=== PATIENT | female | born 1950 | race Caucasian/White ===

== ENCOUNTER → 2018-08-13 | Outpatient (CLI) | payer BC, SELFPAY ==
--- NOTE | 2018-08-13 06:57 | BI_ITS ---
MAMMOGRAPHY - BILATERAL SCREENING 3-D TOMOSYNTHESIS REASON FOR EXAM: Female, 68 years old. Bilateral Screening 3-D tomosynthesis PERTINENT HISTORY: Status post left stereotactic biopsy in 2010.. TECHNIQUE: 2-D mammograms and 3-D Tomosynthesis of the breast (s) were performed. CAD was performed. COMPARISON: June 20, 2016. FINDINGS: The breast composition is heterogeneously dense that can obscure small breast masses. Scattered benign calcifications are seen. No dense spiculated masses or suspicious microcalcifications are identified. No architectural distortion is identified. There is no skin thickening or retraction. Three Biopsy clips are identified within the parenchyma of the left upper lateral breast. There is stable mild focal fibrosis adjacent to one of these clips involving the deep lateral left breast. This finding most likely represents postbiopsy fibrosis. There has been no significant change since the prior study. BI/SCREENING MAMM (CAD), BILAT IMPRESSION: No mammographic signs of malignancy. Routine yearly mammograms recommended. ASSESSMENT CATEGORY: BIRADS Category 2: Benign. A letter regarding these results will be sent to the patient by the facility within 30 days. FOLLOW UP RECOMMENDATION: Yearly follow up mammogram recommended. (A) Approximately 10% of breast cancers are not detected by mammography. A normal mammogram should not delay biopsy of a clinically suspicious abnormality. Electronically Signed: Darren Ramírez MD at 8:21 EDT , Service support ,
== END | disposition home or self-care (01) ==
LOC: OPBI 06:55
PROVIDERS: Family Provider Family Medicine; PCP Family Medicine; Referring Provider Family Medicine; Visit Provider Family Medicine
DX: Z12.31 Encounter for screening mammogram for malignant neoplasm of breast (principal)
CPT/HCPCS: 77063; 77067

== ENCOUNTER → 2019-08-26 08:38 | Outpatient (CLI) | payer BC, SELFPAY ==
--- NOTE | 2019-08-26 08:41 | BI_ITS ---
MAMMOGRAPHY - BILATERAL SCREENING REASON FOR EXAM: Female, 69 years old. Routine annual screening examination. PERTINENT HISTORY: Non-contributory. Remote right excisional breast biopsy and left stereotactic breast biopsy. TECHNIQUE: Digital bilateral breast morgan (3D mammographic acquisition) in the CC and MLO projections. 2-D mediolateral oblique (MLO) and craniocaudad (CC) views of both breasts were obtained. CAD: Full Field Digital Mammography with Computer Added Detection was performed. COMPARISON: Comparison is made with prior examination dated August 13, 2018 and September 16, 2010. FINDINGS: Breast Composition: The breasts are heterogeneously dense, which may obscure small masses. There are no dominant masses or suspicious calcifications. 2 tissue markers are seen in the upper slightly lateral aspect of the left breast. These are unchanged. No other significant abnormalities are identified. There has been no significant change since the prior study. BI/SCREEN MAMM (CAD) W/MORGAN BILAT IMPRESSION: Stable bilateral screening mammogram. Yearly follow-up mammogram recommended. (A) ASSESSMENT CATEGORY: BIRADS Category 2: Benign. A letter regarding these results will be sent to the patient by the facility within 30 days. Approximately 10% of breast cancers are not detected by mammography. A normal mammogram should not delay biopsy of a clinically suspicious abnormality. [id number] Electronically Signed: Chris Rodrigues, at 10:27 EDT , Service support ,
== END ==
PROVIDERS: PCP Family Medicine; Referring Provider Family Medicine; Visit Provider Family Medicine
DX: Z12.31 Encounter for screening mammogram for malignant neoplasm of breast (principal)
CPT/HCPCS: 77063; 77067

== ENCOUNTER → 2020-08-27 07:40 | Outpatient (CLI) | payer BC, SELFPAY ==
--- NOTE | 2020-08-27 07:44 | BI_ITS ---
MAMMOGRAPHY - BILATERAL SCREENING 3-D TOMOSYNTHESIS REASON FOR EXAM: Female, 70 years old. Routine screening PERTINENT HISTORY: Previous biopsies. TECHNIQUE: 2-D mammograms and 3-D Tomosynthesis of the breast (s) were performed. CAD was performed. COMPARISON: 08/26/2019 FINDINGS: The breast composition is heterogeneously dense that can obscure small breast masses. Scattered benign calcifications are seen. No dense spiculated masses or suspicious microcalcifications are identified. Stable architectural distortion in both breasts from previous biopsies.. There is no skin thickening or retraction. There has been no significant change since the prior study. BI/SCRN MAMM (CAD)W/MORGAN BILAT IMPRESSION: No mammographic signs of malignancy. Routine yearly mammograms recommended. ASSESSMENT CATEGORY: BIRADS Category 2: Benign. A letter regarding these results will be sent to the patient by the facility within 30 days. FOLLOW UP RECOMMENDATION: Yearly follow up mammogram recommended. (A) Approximately 10% of breast cancers are not detected by mammography. A normal mammogram should not delay biopsy of a clinically suspicious abnormality. Electronically Signed: Ronn Manzanares MD at 8:23 EDT , Service support ,
== END ==
PROVIDERS: PCP Family Medicine; Referring Provider Family Medicine; Visit Provider Family Medicine
DX: Z12.31 Encounter for screening mammogram for malignant neoplasm of breast (principal)
CPT/HCPCS: 77063; 77067

== ENCOUNTER → 2021-08-29 | Outpatient (CLI) | payer BC, SELFPAY ==
--- NOTE | 2021-08-29 07:03 | BI_ITS ---
MAMMOGRAPHY - BILATERAL SCREENING REASON FOR EXAM: Female, 71 years old. Routine annual screening examination. PERTINENT HISTORY: Non-contributory. Remote left stereotactic breast biopsy and right excisional biopsy. TECHNIQUE: Digital bilateral breast morgan (3D mammographic acquisition) in the CC and MLO projections. 2-D mediolateral oblique (MLO) and craniocaudad (CC) views of both breasts were obtained. CAD: Full Field Digital Mammography with Computer Added Detection was performed. COMPARISON: Comparison is made with prior study of 08/27/2020 and 08/26/2019. FINDINGS: Breast Composition: The breasts are heterogeneously dense, which may obscure small masses. 2 tissue markers are once again seen in the upper lateral aspect of the left breast. Since prior study, there has been progressive architectural distortion in the upper lateral portion of the left breast. The patient will be recalled for additional views including 90 degree lateral and compression spot views. No other significant abnormalities are identified. BI/SCRN MAMM (CAD)W/MORGAN BILAT IMPRESSION: Progressive architectural distortion in the upper lateral portion of the left breast as described. The patient will be recalled for additional views including compression spot views and 90 degree lateral view. Recall Side: Left Breast ASSESSMENT CATEGORY: BIRADS Category 0: Incomplete. Need additional imaging evaluation. A letter regarding these results will be sent to the patient by the facility within 30 days. Approximately 10% of breast cancers are not detected by mammography. A normal mammogram should not delay biopsy of a clinically suspicious abnormality. [id number] Electronically Signed: Chris Rodrigues MD at 8:48 EDT ,
== END | disposition home or self-care (01) ==
LOC: OPBI 07:01
PROVIDERS: PCP Family Medicine; Referring Provider Family Medicine; Visit Provider Family Medicine
DX: Z12.31 Encounter for screening mammogram for malignant neoplasm of breast (principal)
CPT/HCPCS: 77063; 77067

== ENCOUNTER → 2021-09-03 | Outpatient (CLI) | payer BC, SELFPAY ==
--- NOTE | 2021-09-03 08:59 | BI_ITS ---
MAMMOGRAPHY - UNILATERAL DIAGNOSTIC: LEFT BREAST REASON FOR EXAM: Female, 71 years old. ABN MAMM PERTINENT HISTORY: Non-contributory. TECHNIQUE: Digital examination. Mediolateral oblique (MLO) and craniocaudad (CC) views of the breast were obtained. CAD: CAD was not performed on this study. COMPARISON: 08/29/2021 FINDINGS: Breast Composition: The breasts are heterogeneously dense, which may obscure small masses. Focal compression views do not confirm a mass or architecture distortion the upper outer quadrant left breast at the site of prior lumpectomy consistent with scarring and normal breast parenchyma. No other significant abnormalities are identified. BI/DIAG MAMM W/CAD, UNILAT IMPRESSION: Stable unilateral diagnostic mammogram. ASSESSMENT CATEGORY: BIRADS Category 2: Benign. A letter regarding these results will be sent to the patient by the facility within 30 days. FOLLOW-UP RECOMMENDATION: Yearly follow-up mammogram recommended. (A) Approximately 10% of breast cancers are not detected by mammography. A normal mammogram should not delay biopsy of a clinically suspicious abnormality. Electronically Signed: Tomasz Herrera MD at 9:46 EDT ,
== END | disposition home or self-care (01) ==
LOC: OPBI 08:58
PROVIDERS: PCP Family Medicine; Visit Provider Family Medicine
DX: R92.2 Inconclusive mammogram (principal)
CPT/HCPCS: 77065

== ENCOUNTER → 2022-09-10 | Outpatient (CLI) | payer BC, SELFPAY ==
--- NOTE | 2022-09-10 07:38 | BI_ITS ---
MAMMOGRAPHY - BILATERAL SCREENING REASON FOR EXAM: Female, 72 years old. Routine annual screening examination. PERTINENT HISTORY: Non-contributory. Prior left stereotactic breast biopsy and right excisional breast biopsy. TECHNIQUE: Digital bilateral breast morgan (3D mammographic acquisition) in the CC and MLO projections. 2-D mediolateral oblique (MLO) and craniocaudad (CC) views of both breasts were obtained. CAD: Full Field Digital Mammography with Computer Added Detection was performed. COMPARISON: Comparison is made with prior study dated August 29, 2021 and August 28, 2019. FINDINGS: Breast Composition: The breasts are heterogeneously dense, which may obscure small masses. There are no dominant masses or suspicious calcifications. To tissue clip markers are once again seen in the upper lateral aspect of the left breast. No other significant abnormalities are identified. There has been no significant change since the prior study. BI/SCRN MAMM (CAD)W/MORGAN BILAT IMPRESSION: Stable bilateral screening mammogram. Yearly follow-up mammogram recommended. (A) ASSESSMENT CATEGORY: BIRADS Category 2: Benign. A letter regarding these results will be sent to the patient by the facility within 30 days. Approximately 10% of breast cancers are not detected by mammography. A normal mammogram should not delay biopsy of a clinically suspicious abnormality. [id number] Electronically Signed: Chris Rodrigues MD at 9:43 EDT ,
== END | disposition home or self-care (01) ==
LOC: OPBI 07:36
PROVIDERS: PCP Family Medicine; Referring Provider Family Medicine; Visit Provider Family Medicine
DX: Z12.31 Encounter for screening mammogram for malignant neoplasm of breast (principal)
CPT/HCPCS: 77063; 77067

== ENCOUNTER → 2023-09-15 | Outpatient (CLI) | payer BC, SELFPAY ==
--- NOTE | 2023-09-15 07:12 | BI_ITS ---
MAMMOGRAPHY - BILATERAL SCREENING REASON FOR EXAM: Female, 73 years old. Routine annual screening examination. PERTINENT HISTORY: Non-contributory. History of prior right excisional breast biopsy and left stereotactic breast biopsy. TECHNIQUE: Digital bilateral breast morgan (3D mammographic acquisition) in the CC and MLO projections. 2-D mediolateral oblique (MLO) and craniocaudad (CC) views of both breasts were obtained. CAD: Full Field Digital Mammography with Computer Added Detection was performed. COMPARISON: Comparison is made with prior study dated September 10, 2022 and September 03, 2021. FINDINGS: Breast Composition: The breasts are heterogeneously dense, which may obscure small masses. There are no dominant masses or suspicious calcifications. 3 tissue clip marker is once again seen in the upper lateral aspect of the left breast. No other significant abnormalities are identified. There has been no significant change since the prior study. BI/SCRN MAMM (CAD)W/MORGAN BILAT IMPRESSION: Stable bilateral screening mammogram. Yearly follow-up mammogram recommended. (A) ASSESSMENT CATEGORY: BIRADS Category 2: Benign. A letter regarding these results will be sent to the patient by the facility within 30 days. Approximately 10% of breast cancers are not detected by mammography. A normal mammogram should not delay biopsy of a clinically suspicious abnormality. [id number] Electronically Signed: Chris Rodrigues MD at 8:51 EDT ,
== END | disposition home or self-care (01) ==
LOC: OPBI 07:10
PROVIDERS: PCP Family Medicine; Referring Provider Family Medicine; Visit Provider Family Medicine
DX: Z12.31 Encounter for screening mammogram for malignant neoplasm of breast (principal)
CPT/HCPCS: 77063; 77067

== ENCOUNTER → 2024-09-15 | Outpatient (CLI) | payer MEDICARE, SELFPAY ==
--- NOTE | 2024-09-15 10:00 | BI_ITS ---
EXAM: SCRN MAMM (CAD)W/MORGAN BILAT DATE: 09/15/2024 CLINICAL HISTORY: F, Age 74 y/o , SCREENING BREAST CANCER RISK ASSESSMENT: Na TECHNIQUE: Bilateral screening digital breast tomosynthesis with 2D and 3D images. Computer aided detection. COMPARISON: Prior exam(s) were compared FINDINGS: TISSUE DENSITY: The breast tissue is heterogenously dense, which may obscure small masses. Bilateral Breast Mammographic Findings: Left breast: There is architectural distortion in the upper-outer left breast. Right breast: No suspicious masses, calcifications or other abnormalities are identified. BI/SCRN MAMM (CAD)W/MORGAN BILAT IMPRESSION: OVERALL FINAL ASSESSMENT: BIRADS 0 Incomplete: Need additional imaging evaluati on. RECOMMENDATION: Incomplete: Need additional imaging evaluation with diagnostic left breast mamm ogram and ultrasound . A letter with findings and recommendations will be mailed to the patient. Reading Location: [id number]
== END | disposition home or self-care (01) ==
PROVIDERS: PCP Family Medicine; Referring Provider Family Medicine; Visit Provider Family Medicine
DX: Z12.31 Encounter for screening mammogram for malignant neoplasm of breast (principal)
CPT/HCPCS: 77063; 77067

== ENCOUNTER → 2024-10-03 | Outpatient (CLI) | payer MEDICARE, SELFPAY ==
--- NOTE | 2024-10-03 09:26 | BI_ITS ---
EXAM: DIAG MAMM W/CAD, UNILAT N/A CLINICAL HISTORY: F, Age 74 y/o , ABN MAMM. Architectural distortion seen on screening mammogram dated 09/15/2024. Evaluate. TECHNIQUE: DIAG MAMM W/CAD, UNILAT. COMPARISON: Prior exam(s) dated 09/15/2024, 09/15/2003 and 09/10/2022. FINDINGS: TISSUE DENSITY: The breast tissue is heterogeneously dense, which may obscure small masses. Bilateral Breast Mammographic Findings: The architectural distortion in the superior outer aspect of the right breast appears to disperse partially on the spot compression CC view however on the spot compression MLO view it appears to persist. Further workup with ultrasound will be performed later today. There is a mass identified in the medial aspect of the right breast on today's study measuring 13 mm. Further workup with ultrasound will be performed for further evaluation. BI/DIAG MAMM W/CAD, UNILAT IMPRESSION: The architectural distortion and mass in the left breast will be further worked up with ultrasound. Please see that report. OVERALL FINAL ASSESSMENT BI-RADS 0: INCOMPLETE - NEED ADDITIONAL IMAGING EVALUATION. RECOMMENDATION: Ultrasound Recommended A letter with findings and recommendations will be mailed to the patient. Reading Location: [id number]
--- NOTE | 2024-10-03 09:26 | US_ITS ---
PROCEDURE: BREAST LIMITED UNILATERAL 10/03/2024 REASON FOR EXAM: F, Age 74 y/o , ABN MAMM Left breast architectural distortion. Left breast mass. Inconclusive mammogram. Evaluate. COMPARISON: Left breast mammogram studies dated 10/03/2024, 09/15/2024, and 09/15/2023. TECHNIQUE: BREAST LIMITED UNILATERAL FINDINGS: There is no ultrasound abnormality in the superior aspect of the left breast to correlate to the distortion. The area of distortion appears to represent normal breast parenchymal tissue. There is a solid hypoechoic heterogeneous mass in the left breast at the 9:30, 4 cm from the nipple position measuring 17 x 15 x 6 mm. This mass does correlate to the mass seen on the mammogram. It may represent a fibrocystic mass however a malignancy can not be entirely excluded. Biopsy is warranted in order to completely exclude a malignancy. US/Breast Limited Unilateral IMPRESSION: The solid mass in the left breast should be biopsied in order to completely exc lude a malignancy. Short-term follow-up mammogram of the left breast is recommended to document stability of the area of distorti on. BI-RADS 4: SUSPICIOUS ABNORMALITY. RECOMMENDATION: Biopsy Recommended Reading Location: [id number]
== END | disposition home or self-care (01) ==
LOC: OPBI 09:24
PROVIDERS: PCP Family Medicine; Referring Provider Family Medicine; Visit Provider Family Medicine
DX: Z12.31 Encounter for screening mammogram for malignant neoplasm of breast (principal); R92.8 Other abnormal and inconclusive findings on diagnostic imaging of breast
CPT/HCPCS: 76642; 77065

== ENCOUNTER → 2024-10-12 | Outpatient (CLI) | payer MEDICARE, SELFPAY ==
--- NOTE | 2024-10-12 13:50 | BRBX_PTH ---
PATIENT: JOHN SINGH LOC: [facility] U#:[id number] AGE/SX: 74/F ROOM: RE10/12/[address]: Dr. Yaniv Vincent MD : 1950 BED: DIS: 10/12/2024 SPEC #: [id number] RECD: 10/12/24 15:03 STATUS: CHE REEvans #: [id number] KELLY: 10/12/24 13:[address]: Yaniv Vincent DEPT: SURGICAL PATHOLOGY RECD BY: Ortega Irby ENTERED: 10/13/24 08:33 SP TYPE: BREAST BX OT DR: Dr. Hazel Delcid, DO Tissues: A - Left breast, NOS Procedures: Surgery Specimen Level IV HEADER OPERATION: Ultrasound guided needle core biopsy - left breast PRE-OP DIAGNOSIS: Abnormal mammogram TISSUE SUBMITTED: A- Left breast biopsy Ischemic Time: Unknown Fixation Time: 16 hours, 10 minutes MICROSCOPIC DIAGNOSIS A. Breast, left, abnormal mammogram, core biopsy: - Benign breast tissue. MICROSCOPIC DESCRIPTION Slides are reviewed. GROSS DESCRIPTION A. Received in formalin labeled with the patient's name and date of . Designated as L breast are 2 zamora-white tissue cores, 0.6 cm and 0.9 cm in length by 0.1 cm in diameter. Entirely submitted in 1 cassette. Cold ischemic time: UnknownFormalin fixation time: 16 hours, 10 minutes CO 10/12/2024 CPT:43002
--- NOTE | 2024-10-12 13:50 | BRBX_PTH ---
PATIENT: JOHN SINGH LOC: [facility] U#:[id number] AGE/SX: 74/F ROOM: RE10/12/[address]: Dr. Yaniv Vincent MD : 1950 BED: DIS: 10/12/2024 SPEC #: [id number] RECD: 10/12/24 15:03 STATUS: CHE REEvans #: [id number] KELLY: 10/12/24 13:[address]: Yaniv Vincent DEPT: SURGICAL PATHOLOGY RECD BY: Ortega Irby ENTERED: 10/13/24 08:33 SP TYPE: BREAST BX OT DR: Dr. Hazel Dlecid, DO Tissues: A - Left breast, NOS Procedures: Surgery Specimen Level IV HEADER OPERATION: Ultrasound guided needle core biopsy - left breast PRE-OP DIAGNOSIS: Abnormal mammogram TISSUE SUBMITTED: A- Left breast biopsy Ischemic Time: Unknown Fixation Time: 16 hours, 10 minutes MICROSCOPIC DIAGNOSIS A. Breast, left, abnormal mammogram, core biopsy: - Benign breast tissue. MICROSCOPIC DESCRIPTION Slides are reviewed. GROSS DESCRIPTION A. Received in formalin labeled with the patient's name and date of . Designated as L breast are 2 zamora-white tissue cores, 0.6 cm and 0.9 cm in length by 0.1 cm in diameter. Entirely submitted in 1 cassette. Cold ischemic time: UnknownFormalin fixation time: 16 hours, 10 minutes NV 10/12/2024 CPT:19597
== END | disposition home or self-care (01) ==
LOC: LABSPEC 10-13 08:26
PROVIDERS: PCP Family Medicine; Visit Provider Surgery
DX: R92.8 Other abnormal and inconclusive findings on diagnostic imaging of breast (principal)
CPT/HCPCS: 88305